=== PATIENT | female | born 1990 | race Caucasian/White ===

== ENCOUNTER 2021-12-03 08:55 | Emergency (ER) | payer BC ==
[2021-12-03 08:58] VITALS: RESP 18
--- NOTE | 2021-12-03 09:19 | XR ---
EXAMINATION TYPE: XR chest 2V DATE OF EXAM: 12/03/2021 COMPARISON: NONE HISTORY: Shortness of breath TECHNIQUE: Frontal and lateral views of the chest are obtained. FINDINGS: There is no focal air space opacity, pleural effusion, or pneumothorax seen. The cardiac silhouette size is within normal limits. The osseous structures are intact. IMPRESSION: No acute cardiopulmonary process.
[2021-12-03] MEDS ORDERED: IBUPROFEN 600 MG TAB PO STA (09:22)
--- NOTE | 2021-12-03 09:25 | ED ---
General Adult HPI - General Chief complaint: Shortness of Breath Stated complaint: JERALD Time Seen by Provider: 12/03/21 09:15 Source: patient, RN notes reviewed, old records reviewed Mode of arrival: wheelchair Limitations: no limitations - History of Present Illness Initial comments: 31-year-old well-appearing patient presents to the emergency room with complaints of 3 days of fever, fatigue and generalized body aches. She states that this morning at 7 AM she started to have some shortness of breath. She does have a history of asthma and did give herself an albuterol treatment. She has a history of anxiety and asthma. Denies any abdominal pain, nausea or vomiting or diarrhea. She did not take any Tylenol or Motrin for her body aches today. -: days(s) (3) Severity scale (1-10): 3 Quality: aching, constant Consistency: constant Improves with: none Worsens with: none Associated Symptoms: fever/chills, malaise, other (body aches) Treatments Prior to Arrival: other (albuterol) - Related Data Home Medications Medication Instructions Recorded Confirmed Albuterol Inhaler ([facility]) [Ventolin 2 puff INHALATION RT-Q6H PRN 04/14/17 11/03/17 Hfa Inhaler] Nadolol [Corgard] 20 mg PO HS 04/14/17 11/03/17 Eletriptan [Relpax] 40 mg PO DAILY PRN 11/03/17 11/03/17 Escitalopram Oxalate [Lexapro] 10 mg PO HS 11/03/17 11/03/17 Montelukast [Singulair] 10 mg PO HS 11/03/17 11/03/17 Multivitamins, Thera [Multivitamin 1 tab PO HS 11/03/17 11/03/17 (formulary)] Topiramate [Topamax] 50 mg PO BID 11/03/17 11/03/17 diphenhydrAMINE HCL [Benadryl] 25 mg PO DAILY PRN 11/03/17 11/03/17 Previous Rx's Medication Instructions Recorded Oxymetazoline 0.05% Nasl [place] 2 spray EA NOSTRIL BID PRN #1 04/14/17 [Afrin 0.05% Nasal [place]] bottle Metoclopramide [Reglan] 5 mg PO TID #9 tab 11/03/17 Allergies Allergy/AdvReac Type Severity Reaction Status Date / Time acetaminophen [From [place]] Allergy Vomiting Verified 12/03/21 08:58 hydrocodone [From [place]] Allergy Vomiting Verified 12/03/21 08:58 wheat AdvReac Nausea & Verified 12/03/21 08:58 Vomiting & Diarrhea Yeast AdvReac Nausea & Verified 12/03/21 08:58 Vomiting & Diarrhea yeast, dried AdvReac Nausea & Verified 12/03/21 08:58 Vomiting & Diarrhea Review of Systems ROS Statement: Those systems with pertinent positive or pertinent negative responses have been documented in the HPI. ROS Other: All systems not noted in ROS Statement are negative. Past Medical History Past Medical History: Asthma Additional Past Medical History / Comment(s): IBS, anxiety History of Any Multi-Drug Resistant Organisms: None Reported Past Surgical History: No Surgical Hx Reported Additional Past Surgical History / Comment(s): colonoscopy Past Anesthesia/Blood Transfusion Reactions: No Reported Reaction Past Psychological History: Anxiety, Panic Disorder Past Alcohol Use History: None Reported Past Drug Use History: None Reported - Past Family History Father Family Medical History: No Reported History General Exam Limitations: no limitations General appearance: alert, in no apparent distress Head exam: Present: atraumatic Eye exam: Present: normal appearance. Absent: scleral icterus, conjunctival injection ENT exam: Present: normal oropharynx, mucous membranes moist Expanded Mouth exam: Present: tongue normal, tongue elevation. Absent: drooling, trismus, muffled voice Throat exam: negative: tonsillomegaly, tonsillar exudate, R peritonsillar mass, L peritonsillar mass Neck exam: Present: normal inspection, full ROM. Absent: tenderness, meningismus Respiratory exam: Present: normal lung sounds bilaterally. Absent: respiratory distress, wheezes, accessory muscle use Cardiovascular Exam: Present: regular rate, normal rhythm GI/Abdominal exam: Present: soft. Absent: distended, tenderness, rigid Extremities exam: Present: normal capillary refill. Absent: pedal edema Back exam: Present: normal inspection, full ROM. Absent: tenderness, CVA tenderness (R), CVA tenderness (L), rash noted Neurological exam: Present: alert, oriented X3 Psychiatric exam: Present: normal affect, normal mood Skin exam: Present: warm, dry, intact. Absent: cyanosis, diaphoretic, petechiae, pallor Course Vital Signs 12/03/21 12/03/21 08:56 11:00 Temperature 99.1 F 98.8 F Pulse Rate 99 84 Respiratory 18 18 Rate Blood Pressure 112/73 94/64 O2 Sat by Pulse 100 97 Oximetry Medical Decision Making - Medical Decision Making She was given 600 mg of Motrin. Vital signs are stable. She was encouraged to increase her fluid intake. Self quarantine while symptomatic and take vitamin C, vitamin D and zinc for immune health. - Lab Data Lab Results 12/03/21 12/03/21 Range/Units 09:01 09:46 Coronavirus (PCR) Not Detected (Not Detectd) Influenza Type A RNA Detected H (Not Detectd) Influenza Type B (PCR) Not Detected (Not Detectd) Disposition Clinical Impression: Influenza A Disposition: HOME SELF-CARE Condition: Good Instructions (If sedation given, give patient instructions): Influenza (ED) Additional Instructions: Increase your fluid intake, Tylenol and or Motrin as needed for any body aches or fevers. Self quarantine while symptomatic. Return to the emergency room with any new or concerning symptoms. Is patient prescribed a controlled substance at d/c from ED?: No Referrals: John Burnett DO [Primary Care Provider] - 1-2 days Time of Disposition: 10:35
[2021-12-03 11:02] VITALS: BP 94/64; PULSE 84; TEMP 98.8
== END 2021-12-03 11:02 | disposition home or self-care (01) ==
LOC: EC 08:55
DX: J10.1 Influenza due to other identified influenza virus with other respiratory manifestations (principal); J45.909 Unspecified asthma, uncomplicated; F41.0 Panic disorder [episodic paroxysmal anxiety]; Z79.51 Long term (current) use of inhaled steroids; Z20.822 Contact with and (suspected) exposure to COVID-19; Z88.5 Allergy status to narcotic agent; Z88.6 Allergy status to analgesic agent; Z91.018 Allergy to other foods; F17.200 Nicotine dependence, unspecified, uncomplicated
CPT/HCPCS: 71046; 87502; 87635; 96360; 96361; 99285

== ENCOUNTER → 2024-06-11 | Outpatient (CLI) | payer MEDICAID ==
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
== END | disposition home or self-care (01) ==
LOC: RADMRIMAIN 21:13
PROVIDERS: ATTEND Psychiatry & Neurology Neurology
DX: M54.12 Radiculopathy, cervical region (principal); G43.909 Migraine, unspecified, not intractable, without status migrainosus
CPT/HCPCS: 72141

== ENCOUNTER 2024-09-17 15:33 | Emergency (ER) | payer MEDICAID, OTHER ==
[2024-09-17 16:02] VITALS: TEMP 98.3
[2024-09-17] MEDS: MECLIZINE 12.5 MG TAB PO STA (17:20)
[2024-09-17] MEDS: ACETAMINOPHEN TAB 325 MG TAB PO STA (17:21)
[2024-09-17] MEDS: ONDANSETRON ODT 4 MG TAB PO STA (17:22)
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
[2024-09-17 17:50] VITALS: BP 110/73; PULSE 69; RESP 16
== END 2024-09-17 17:53 | disposition home or self-care (01) ==
LOC: EC 15:33
DX: S09.90XA Unspecified injury of head, initial encounter (principal); Z88.5 Allergy status to narcotic agent; Z88.6 Allergy status to analgesic agent; Z91.018 Allergy to other foods; Z88.8 Allergy status to other drugs, medicaments and biological substances; Y04.0XXA Assault by unarmed brawl or fight, initial encounter; Y99.0 Civilian activity done for income or pay
CPT/HCPCS: 70450; 70486; 72125; 99284